=== PATIENT | male | born 2000 | race Caucasian/White ===

== ENCOUNTER 2018-07-23 11:04 | Emergency (ER) | payer BC, OTHER ==
[2018-07-23 11:12] VITALS: BP 138/69
--- NOTE | 2018-07-23 11:21 | EDM.PDOC ---
ED HPI GENERAL MEDICAL PROBLEM - General Chief Complaint: Back Pain or Injury Stated Complaint: Fall; low back pain Time Seen by Provider: 07/23/18 11:15 Source of Information: Reports: Patient, Old Records ([facility] EMR. No paper hospital chart available.) History Limitations: Reports: No Limitations - History of Present Illness INITIAL COMMENTS - FREE TEXT/NARRATIVE: The patient drove himself to the emergency room via private automobile for evaluation of a Workmen's Compensation injury, which occurred at about 09:30 hours this morning. Note the patient was trying to clean out an exhaust duct from the roof at about 10 feet height when he slipped on the snow sliding off the roof and landing onto his feet and he complains of 5-6/10 sharp bilateral low back pain with no previous history of low back injury, chronic low back pain , etc. . He denies any head injury, neck pain, paresthesias, neurological deficits, or other complaints or injuries. No recent history of abdominal pain, heartburn, nausea, diarrhea, melena, gross hematochezia, or any food intolerance , including fatty foods, etc.. The patient also denies any recent fever, cough, wheezing, dyspnea, etc.. Onset: Today, Sudden Onset Date: 07/23/18 Onset Time: 09:30 Duration: Intermittent Location: Reports: Back. 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 Denies: Arthritis, Back Pain, Chronic, Fracture, Gout, Neck Pain, Chronic, Osteoarthritis, RA Dermatologic History: Reports: Other (See Below) Other Dermatologic History: Acne vulgaris Social & Family History - Tobacco Use Smoking Status *Q: Never Smoker Tobacco Use Within Last Twelve Months: No Used Tobacco, but Quit: No Smoking Cessation Information Provided To Patient: No Second Hand Smoke Exposure: No Second Hand Smoke Education Provided: No ED ROS GENERAL - Review of Systems Review Of Systems: ROS reveals no pertinent complaints other than HPI. ED EXAM,LOWER BACK PAIN/INJURY - Physical Exam Exam: See Below Exam Limited By: No Limitations General Appearance: Alert, WD/WN, No Apparent Distress Eye Exam: Bilateral Eye: EOMI, Normal Inspection (No nystagmus), PERRL Ears: Normal External Exam, Normal Canal, Hearing Grossly Normal, Normal TMs Nose: Normal Inspection, Normal Mucosa, No Blood Throat/Mouth: Normal Inspection, Normal Lips, Normal Teeth, Normal Gums, Normal Oropharynx, Normal Voice, No Airway Compromise. No: Dysphagia, Perioral Cyanosis Head: Atraumatic, Normocephalic. No: Facial Swelling, Facial Tenderness, Sinus Tenderness Neck: Normal Inspection, Supple, Non-Tender, Full Range of Motion. No: Lymphadenopathy (L), Lymphadenopathy (R), Thyromegaly Respiratory/Chest: No Respiratory Distress, Lungs Clear, Normal Breath Sounds, No Accessory Muscle Use, Chest Non-Tender. No: Pleural Rub, Retractions Cardiovascular: Normal Peripheral Pulses, Regular Rate, Rhythm, No Edema, No Gallop, No JVD, No Murmur, No Rub. No: Gallop/S3, Gallop/S4, Friction Rub GI/Abdominal: Normal Bowel Sounds, Soft, Non-Tender, No Organomegaly, No Distention, No Abnormal Bruit, No Mass, Pelvis Stable. No: Guarding (Male) Exam: Deferred Rectal (Males) Exam: Deferred Back Exam: Decreased Range of Motion (Mild secondary to injury), Paraspinal Tenderness (Mild left-sided lateral mid lumbar region with no ecchymosis, crepitation, swelling, etc. with symptoms elicited by palpation only with anteflexion). No: Muscle Spasm, Vertebral Tenderness Extremities: Normal Inspection, Normal Range of Motion, Non-Tender, No Pedal Edema, Normal Capillary Refill. No: Cindy's Sign Neurological: Alert, Normal Mood/Affect, Normal Dorsiflexion, CN II-XII Intact, Normal Plantar Flexion, Normal Gait, Normal Reflexes, No Motor/Sensory Deficits , Oriented x 3 Psychiatric: Normal Affect, Normal Mood Skin Exam: Warm, Dry, Intact, Normal Color, No Rash. No: Diaphoretic, Ecchymosis, Wound/Incision Lymphatic: No Adenopathy Course - Vital Signs Last Recorded V/S: Last Vital Signs Temp 37.1 C 07/23/18 11:11 Pulse 67 07/23/18 11:11 Resp 16 07/23/18 11:11 BP 138/69 07/23/18 11:11 Pulse Ox 100 07/23/18 11:11 Vital Signs - 24 hr 07/23/18 11:11 Temperature [ 37.1 C Temporal] Pulse, 67 Peripheral [ Pulse Oximetry] Respiratory 16 Rate Blood Pressure 138/69 [Right Upper Arm] O2 Sat by Pulse 100 Oximetry - Orders/Labs/Meds Orders: Active Orders 24 hr Category Date Time Status Lumbar Spine 2 or 3V [CR] Stat Exams 07/23/18 11:48 Taken Obtain Past Medical Record [OM.PC] Routine Oth 07/23/18 11:48 Active Labs: None Meds: None - Radiology Interpretation Free Text/Narrative:: X-rays of the lumbar spine, 3 views, shows no evidence of fracture, dislocation , etc. Departure - Departure Time of Disposition: 12:20 Disposition: Home, Self-Care 01 Condition: Good Clinical Impression: Low back pain Qualifiers: Chronicity: acute Back pain laterality: bilateral Sciatica presence: without sciatica Qualified Code(s): M54.5 - Low back pain - Discharge Information *PRESCRIPTION DRUG MONITORING PROGRAM REVIEWED*: Not Applicable *COPY OF PRESCRIPTION DRUG MONITORING REPORT IN PATIENT BARBARA: Not Applicable Prescriptions: Cyclobenzaprine [Flexeril] 10 mg PO TID PRN #30 tab PRN Reason: Spasms Instructions: Back Pain, Adult, [id number] Referrals: Anita Kinsey PA-C [Primary Care Provider] - Forms: ED Department Discharge, ED Return to Work/School Form Additional Instructions: 1. Follow up with your regular provider in 10-14 days as needed, if symptoms persist. Bring these discharge instructions with you to that visit.. 2. Tylenol 650 mg by mouth every 4 hours and/or OTC ibuprofen 2-3 tabs by mouth every 6 hours with food as directed./needed. You may stagger these medications for 48-72 hours only, which essentially means that you are receiving a pain medication about every 2 hours. 3. BenGay or equivalent, heating pad, and/or ice packs as directed. 4. Work excuse- See Form 5. Sedation dry mouth, etc. precautions with Flexeril as discussed 6. Advance activity as directed/tolerated 7. Immediately after this visit verify that your cellular telephone's voicemail has been activated and is empty. Also verify that your home telephone 's answering machine is operating properly and has space to receive messages. Note that it is sometimes necessary for us to be able to contact you at a later date to discuss your medical care. 8. Please remember that we are ALWAYS here for you and want to answer any questions you may have. Feel free to call the hospital any time and we call you back [id number]. - Problem List & Annotations (1) Low back pain SNOMED Code(s): 693201728 Code(s): M54.5 - LOW BACK PAIN Status: Acute Priority: High Onset Date : 07/23/18 Annotation/Comment:: Symptomatic relief as per discharge instructions. No evidence of significant injury. Work excuse and Workmen's Compensation forms were completed. Activity restrictions, etc. were discussed. Qualifiers: Chronicity: acute Back pain laterality: bilateral Sciatica presence: without sciatica Qualified Code(s): M54.5 - Low back pain - Problem List Review Problem List Initiated/Reviewed/Updated: Yes - My Orders Last 24 Hours: My Active Orders 07/23/18 11:48 Lumbar Spine 2 or 3V [CR] Stat Obtain Past Medical Record [OM.PC] Routine - Assessment/Plan Last 24 Hours: My Active Orders 07/23/18 11:48 Lumbar Spine 2 or 3V [CR] Stat Obtain Past Medical Record [OM.PC] Routine Assessment:: As above Plan: As above. Extensive precautions were given to the patient, who is in agreement with the treatment plan. See Patient Instructions for further treatment and plan.
== END 2018-07-23 12:20 | disposition home or self-care (01) ==
LOC: LL.ED 11:04
DX: M54.5 Low back pain (principal); Z88.8 Allergy status to other drugs, medicaments and biological substances; W00.0XXA Fall on same level due to ice and snow, initial encounter; Y99.0 Civilian activity done for income or pay
CPT/HCPCS: 72100; 99284